=== PATIENT | female | born 2000 | race Caucasian/White ===

== ENCOUNTER 2021-08-27 08:11 | Emergency (ER) | payer BC, SELFPAY ==
[2021-08-27 08:23] VITALS: BP 113/66; PULSE 86; RESP 16; TEMP 36.4; O2SAT 98
--- NOTE | 2021-08-27 08:30 | ED.URI ---
HPI - URI/Sore Throat General Chief Complaint: Upper Respiratory Infection Stated Complaint: uri Time Seen by Provider: 08/27/21 08:30 History of Present Illness HPI Narrative: Leydi Singletary is a 21 yo female with no PMH who [facility] x3 days and left eyelid minor swelling that she states was crusted and closed this morning Related Data Allergies Allergy/AdvReac Type Severity Reaction Status Date / Time Penicillins Allergy Intermediate Hives Verified 08/27/21 08:35 Review of Systems Review of Systems: CONSTITUTIONAL: Denies fever, chills, sweats. EYES: Denies visual changes, redness, discharge. Left mild edema ENT: Denies rhinorrhea, nasal congestion, sore throat, otalgia. CARDIOVASCULAR: Denies chest pain, palpitations, edema. RESPIRATORY: Denies dyspnea, wheezing, cough GASTROINTESTINAL: Denies abdominal pain, nausea, vomiting, diarrhea. GENITOURINARY: Denies dysuria, hematuria, abnormal discharge SKIN: Denies rash or itching. NEUROLOGIC: Denies numbness, or focal weakness. PSYCHIATRIC: Denies anxiety or depression. [facility] Social History Social History (Updated 08/27/21 @ 08:35 by Christel Sher CNP) Smoking status: Never smoker Alcohol intake: current Comments At time of signature, I agree with nursing past medical, surgical, social and family history. There is no relevant family history pertinent to the presenting complaint. Exam Narrative: GENERAL: This is a well-nourished, well-developed patient, in mild distress. HEAD: normocephalic, atraumatic. EYES: Sclera clear/white. Vision is grossly intact. Left eyelid mildly edematous, no injection EARS: External ears normal, . Hearing grossly intact. NOSE: External nose normal with nasal discharge, nares without redness, no rhinorrhea. THROAT: Mucous membranes moist, NECK: Neck supple, non-tender CARDIOVASCULAR: Regular rate and rhythm without murmurs, gallops, or rubs. RESPIRATORY: Clear to auscultation. Breath sounds equal bilaterally. No wheezes, rales, or rhonchi. GASTROINTESTINAL: Not done SKIN: warm, intact with no suspicious lesions or rash, good texture and turgor. NEURO: awake, alert, and oriented to person, place and time. There were no obvious focal neurologic abnormalities. Steady gait EXTREMITIES: Normal range of motion. BACK: Nontender without deformity Course Course Emergency Course: Patient here with nasal congestion and eye discharge on the left that occurred this morning Started on prednisone 40 mg x 5 days and tobramycin to left eye Level of Care: Express Care Visit Vital Signs Vital signs: Vital Signs Temperature 97.6 F 08/27/21 08:23 Pulse Rate 86 08/27/21 08:23 Respiratory Rate 16 08/27/21 08:23 Blood Pressure 113/66 08/27/21 08:23 Pulse Oximetry 98 08/27/21 08:23 Oxygen Delivery Room Air 08/27/21 08:23 Temperature 97.6 F 08/27/21 08:23 Pulse Rate 86 08/27/21 08:23 Respiratory Rate 16 08/27/21 08:23 Blood Pressure 113/66 08/27/21 08:23 Pulse Oximetry 98 08/27/21 08:23 Oxygen Delivery Room Air 08/27/21 08:23 MDM - URI/Sore Throat Differential Diagnosis Differential diagnosis: Likely upper respiratory infection, sinusitis and other (Conjunctivitis) Critical Care Time Critical Care Time Critical Care Time: No Discharge Plan Discharge Clinical Impression: Sinusitis Qualifiers: Sinusitis location: frontal Chronicity: acute Recurrence: non-recurrent Qualified Code(s): J01.10 - Acute frontal sinusitis, unspecified Conjunctivitis Qualifiers: Conjunctivitis type: acute Acute conjunctivitis type: bacterial Laterality: left Qualified Code(s): H10.32 - Unspecified acute conjunctivitis, left eye Patient Disposition: Home, Self-Care Condition: Stable Instructions: Sinusitis (ED) Additional Instructions: Take steroids in the morning May supplement with Benadryl or with Sudafed Use drops to left eye 3 times a day for 3 days and a
== END 2021-08-27 08:56 | disposition home or self-care (01) ==
PROVIDERS: Emergency Provider Nurse Practitioner
DX: J01.10 Acute frontal sinusitis, unspecified (principal); H10.32 Unspecified acute conjunctivitis, left eye; K90.0 Celiac disease
CPT/HCPCS: 99203; G0463

== ENCOUNTER 2022-04-20 09:13 | Emergency (ER) | payer BC, SELFPAY ==
[2022-04-20 09:18] VITALS: BP 121/70; PULSE 71; RESP 16; TEMP 36.3; O2SAT 100
--- NOTE | 2022-04-20 09:31 | ED.FEMALEGU ---
HPI - Female Genitourinary General Chief complaint: Urogenital-Female Stated complaint: uti Time Seen by Provider: 04/20/22 09:32 Source: patient, RN notes reviewed and old records reviewed Mode of arrival: ambulatory Limitations: no limitations History of Present Illness HPI Narrative: 21 year old female who [facility] with complaints of urinary burning with urgency and frequency since Wednesday. Patient reports that she took AZO on Wednesday and one dose of AZO on Wednesday for her symptoms.Patient denies any vaginal discharge or itching or concern for STD's. patient denies any fevers or chills denies any nausea or vomiting or diarrhea, Patient denies any suprapubic pain or any back pain. Patient reports that she has been drinking a lot of water and cranberry juice. MD elicited complaint: UTI Onset (ago): day(s) (3) Location of symptoms: urethra Severity scale (1-10): 3 Related Data Allergies Allergy/AdvReac Type Severity Reaction Status Date / Time Penicillins Allergy Hives Verified 04/20/22 09:29 Review of Systems Review of Systems: CONSTITUTIONAL: Denies fever, chills, or sweats. CARDIOVASCULAR: Denies chest pain, palpitations, or edema. RESPIRATORY: Denies cough or dyspnea. GASTROINTESTINAL: Denies abdominal pain, nausea, vomiting, or diarrhea. GENITOURINARY: Reports dysuria, frequency, urgency. Denies flank pain or hematuria. SKIN: Denies rash or itching. MUSCULOSKELETAL: Denies back pain or myalgia. Denies CVA tenderness NEUROLOGIC: Denies headache All systems reviewed & are unremarkable except as noted in HPI and below PMFSH Surgical History Surgical History (Updated 04/21/22 @ 07:33 by Michelle Quintero NP) History of cholecystectomy Social History Social History (Updated 04/21/22 @ 07:36 by Michelle Quintero NP) Smoking status: Never smoker Alcohol intake: current Alcohol use details: social Substance use: never Gender identity (if verbalized by the patient): Female Comments At time of signature, agree with nursing past medical, surgical, social and family history. There is no relevant family history pertinent to the presenting complaint Exam Narrative: GENERAL: Well-appearing, well-nourished, and in no acute distress. HEAD: Normocephalic, atraumatic. NECK: Supple.no lymphadenopathy CHEST: Clear to auscultation. No respiratory distress.SAO2 100% on room air HEART: Regular rate and rhythm. No murmur heard. Normal peripheral pulses. ABDOMEN: Soft, nontender, nondistended, normal active bowel sounds. No CVA tenderness EXTREMITIES: Normal range of motion. No edema. SKIN: Warm, dry, no rash. NEURO: No focal deficits. Alert and oriented x3. Course Course Emergency Course: Patient is aware of diagnosis, understands and agrees to treatment plan.? Anticipatory guidance given.? Patient agrees to follow-up as directed and is aware of reasons to seek care at the emergency department. Portions of this record may have been created with voice recognition software Level of Care: Express Care Visit Vital Signs Vital signs: Vital Signs Temperature 36.3 C L 04/20/22 09:18 Pulse Rate 71 04/20/22 09:18 Respiratory Rate 16 04/20/22 09:18 Blood Pressure 121/70 04/20/22 09:18 Pulse Oximetry 100 04/20/22 09:18 Oxygen Delivery Room Air 04/20/22 09:18 Temperature 36.3 C L 04/20/22 09:18 Pulse Rate 71 04/20/22 09:18 Respiratory Rate 16 04/20/22 09:18 Blood Pressure 121/70 04/20/22 09:18 Pulse Oximetry 100 04/20/22 09:18 Oxygen Delivery Room Air 04/20/22 09:18 reviewed MDM - Female Genitourinary MDM Narrative Medical decision making narrative: Exam findings and UA show no acute concerns or changes; patient is non-toxic appearing and is in no distress.? Patient is appropriate for outpatient treatment and follow-up. Differential Diagnosis Differential diagnosis: Likely urinary tract infection, cystitis and other (dysuria) Medical Records Attestation:
== END 2022-04-20 09:48 | disposition home or self-care (01) ==
PROVIDERS: Emergency Provider Registered Nurse
DX: R30.0 Dysuria (principal); R35.0 Frequency of micturition; R39.15 Urgency of urination
CPT/HCPCS: 81003; 87077; 87086; 87088; 99213; G0463